=== PATIENT | male | born 1975 | race Caucasian/White ===

== ENCOUNTER 2017-01-31 18:53 | Emergency (ER) | payer SELFPAY ==
[2017-01-31 19:00] VITALS: BP 141/94; PULSE 80; TEMP 97.9; BMI 24.3
--- NOTE | 2017-01-31 20:05 | PDOC ---
History of Present Illness - General Chief Complaint: Shortness of Breath Stated Complaint: TROUBLE BREATHING/was choking with tongue Time Seen by Provider: 01/31/17 19:33 - History of Present Illness Initial Comments: 01/31/17 19:59 41 yo M with h/o thyroid disorder, and anxiety who present sensation of tongue heaviness and SOB. States that he was recently binge drinking 1 Liter Tequilla/ day from ( 01/27)-(01/30) and 24 hours ago developed a sensation that he was going to swallow his tongue. He states that he had to push tongue down with spoon and pull tongue forward with hand to prevent tongue from being swallowed. Symtpoms worse with supine positoning. Also endorses globus sensation with swallowing, but denies dysphagia, or odynophagia. Positive intermittent lightheadedness. Denies N/V, fevers/chills, tongue/facial/ lip swelling, numbness, or redness. He denies cough, wheezing, chest pain, hemoptysis, weakness, or abdominal/GI complaints. Denies illicit drug use. Reports similar incident 1 year ago with spontaneous resolution of symtpoms. Past History - Past Medical History Allergies/Adverse Reactions: Allergies Allergy/AdvReac Type Severity Reaction Status Date / Time No Known Allergies Allergy Verified 01/31/17 18:59 Home Medications: Ambulatory Orders NK [No Known Home Medication] 03/17/14 Other medical history: alcohol use - Psycho/Social/Smoking Cessation Hx Anxiety: No Suicidal Ideation: No Smoking History: Never smoked Have you smoked in the past 12 months: No Information on smoking cessation initiated: No Hx Alcohol Use: Yes (2 pints of tequila) Drug/Substance Use Hx: No Substance Use Type: Alcohol Hx Substance Use Treatment: No Review of Systems - Review of Systems Comments:: 01/31/17 20:05 GENERAL/CONSTITUTIONAL: No fever or chills. No weakness. HEAD, EYES, EARS, NOSE AND THROAT: + Globus sensation. No change in vision. No ear pain or discharge. No sore throat.- CARDIOVASCULAR: No chest pain or shortness of breath RESPIRATORY: No cough, wheezing, or hemoptysis. GASTROINTESTINAL: No nausea, vomiting, diarrhea or constipation. GENITOURINARY: No dysuria, frequency, or change in urination. MUSCULOSKELETAL: No joint or muscle swelling or pain. No neck or back pain. SKIN: No rash NEUROLOGIC: No headache, vertigo, loss of consciousness, or change in strength/ sensation. ENDOCRINE: No increased thirst. No abnormal weight change HEMATOLOGIC/LYMPHATIC: No anemia, easy bleeding, or history of blood clots. ALLERGIC/IMMUNOLOGIC: No hives or skin allergy. *Physical Exam - Vital Signs Last Vital Signs Temp Pulse Resp BP Pulse Ox 97.9 F 80 18 141/94 99 01/31/17 18:56 01/31/17 18:56 01/31/17 18:56 01/31/17 18:56 01/31/17 18:56 - Physical Exam Comments: 01/31/17 20:06 ENERAL: Awake, alert, and fully oriented, in no acute distress HEAD: No signs of trauma, normocephalic, atraumatic EYES: PERRLA, EOMI, sclera anicteric, conjunctiva clear ENT: + tonsilar hypertrophy. Auricles normal inspection, hearing grossly normal , nares patent, oropharynx clear without exudates. Moist mucosa NECK: Normal ROM, supple, no lymphadenopathy, JVD, or masses LUNGS: No distress, speaks full sentences, clear to auscultation bilaterally HEART: Regular rate and rhythm, normal S1 and S2, no murmurs, rubs or gallops, peripheral pulses normal and equal bilaterally. ABDOMEN: Soft, nontender, normoactive bowel sounds. No guarding, no rebound. No masses EXTREMITIES: Normal inspection, Normal range of motion, no edema. No clubbing or cyanosis. SKIN: Warm, Dry, normal turgor, no rashes or lesions noted. Medical Decision Making - Medical Decision Making 01/31/17 20:27 41 yo M with h/o thyroid disorder, and anxiety who present sensation of tongue heaviness and globus sensation following recent binge drinking event. Symtpoms worse with supine positoning. Denies dysphagia, or odynophagia. Denies N/V, fevers/chills, tongue/facial/ lip swelling, numbness, or redness., cough, wheezing, chest pain, hemoptysis, weakness, or abdominal/GI complaints. Denies illicit drug use. Reports similar incident 1 year ago with spontaneous resolution of symtpoms. Physical exam reveals hemodynamic stability and BL tonsilar hypertrophy. DDx: anxiety, panick attack, hyperthyroidism Pt. stable for discharge *DC/Admit/Observation/Transfer Diagnosis at time of Disposition: Anxiety about health - Discharge Dispostion Disposition: HOME Admit: No - Patient Instructions Printed Discharge Instructions: Conversion Disorder Additional Instructions: If you experience difficulty swallowing, increased shortness of breath, lightheadedness or worsening symptoms please return to the ED. Please follow up with PCP for symptom management.
--- NOTE | 2017-01-31 20:18 | PDOC ---
Attending Attestation - Resident Resident Name: Dyllan Yanes - ED Attending Attestation I have performed the following: I have examined & evaluated the patient, The case was reviewed & discussed with the resident, I agree w/resident's findings & plan, Exceptions are as noted - HPI HPI: 02/05/17 19:27 Pt c/o cp - Physicial Exam PE: 01/31/17 20:17 *Physical Exam General Appearance: Yes: Appropriately Dressed. No: Apparent Distress, Intoxicated HEENT: positive: EOMI, RADHA, Normal ENT Inspection, Normal Voice, TMs Normal, Pharynx Normal. negative: Pale Conjunctivae, Photophobia, Scleral Icterus (R), Scleral Icterus (L) Neck: positive: Trachea midline, Normal Thyroid, Supple. negative: Tender, Rigid, Carotid bruit, Stridor, Lymphadenopathy (R), Lymphadenopathy (L), Thyromegaly Respiratory/Chest: positive: Lungs Clear, Normal Breath Sounds. negative: Chest Tender, Respiratory Distress, Accessory Muscle Use, Labored Respiration, RES, Crackles, Rales, Rhonchi, Stridor, Wheezing, Dullness Cardiovascular: positive: Regular Rhythm, Regular Rate, S1, S2. negative: Edema , JVD, Murmur, Bradycardia, Tachycardia Vascular Pulses: Dorsalis-Pedis (R): 2+, Doralis-Pedis (L): 2+ Gastrointestinal/Abdominal: positive: Normal Bowel Sounds, Flat, Soft. negative : Tender, Organomegaly, Pulsatile Mass, Increased Bowel Sounds, Decreased BS, Distended, Guarding, Rebound, Hernia, Hepatomegaly, Spleenomegaly Lymphatic: negative: Adenopathy, Tenderness Musculoskeletal: positive: Normal Inspection. negative: CVA Tenderness, Decreased Range of Motion Extremity: positive: Normal Capillary Refill, Normal Inspection, Normal Range of Motion, Pelvis Stable. negative: Tender, Pedal Edema, Swelling, Erythema Integumentary: positive: Normal Color, Dry, Warm. 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 negative: EOM Palsy, Facial Droop, Sensory Deficit - Medical Decision Making 02/05/17 19:26 Pt evaluated and discharged.
== END 2017-01-31 20:38 | disposition home or self-care (01) ==
LOC: JER 18:53
DX: F40.233 Fear of injury (principal); E07.9 Disorder of thyroid, unspecified; F41.9 Anxiety disorder, unspecified
CPT/HCPCS: 99282-25

== ENCOUNTER 2018-09-27 21:48 | Emergency (ER) | payer SELFPAY ==
[2018-09-27 21:57] VITALS: BP 115/63; PULSE 71; TEMP 97.9; BMI 25.8
[2018-09-27] MEDS ORDERED: DOXYCYCLINE HYCLATE 100 MG CAPSULE PO ONE ×2 (22:28→22:31)
--- NOTE | 2018-09-27 22:28 | PDOC ---
History of Present Illness - General Stated Complaint: AFRAID OF DYING/TICK BITE Time Seen by Provider: 09/27/18 22:07 History Source: Patient Exam Limitations: No Limitations - History of Present Illness Travel History: No Initial Comments: 09/27/18 22:30 Patient with extensive history starting in May where he had unprotected sex with a new partner. Was notified in June that partner had chlamydia and herpes. States July he received treatment for chlamydia but states the pain to his penis and his lower abdomen/suprapubic area never seemed to resolve. Was seen by another provider the end of August, who told him that his STD had resolved did not identify any cause for his penis and scrotal pain and referred him to a urologist which she has an appointment October 06. Patient denies fever, denies any drainage from his penis, no lesions or ulcerations, no swelling. However states has pain and burning with his void which sometimes extends up through his penis shaft and into his suprapubic area. Incidentally today noted a small deer tic lodged onto his scrotum, to extract, and brought with for evaluation. Timing/Duration: reports: constant Quality: reports: aching, burning, stabbing Abdominal Pain Onset Location: reports: suprapubic Past History - Past Medical History Allergies/Adverse Reactions: Allergies Allergy/AdvReac Type Severity Reaction Status Date / Time No Known Allergies Allergy Verified 09/27/18 21:58 Home Medications: Ambulatory Orders Doxycycline Hyclate [Vibratab -] 100 mg PO BID #14 tablet 09/27/18 COPD: No - Suicide/Smoking/Psychosocial Hx Smoking History: Never smoked Have you smoked in the past 12 months: No Information on smoking cessation initiated: No Hx Alcohol Use: No Drug/Substance Use Hx: No Substance Use Type: Alcohol Hx Substance Use Treatment: No *Physical Exam - Vital Signs Last Vital Signs Temp Pulse Resp BP Pulse Ox 97.9 F 71 17 115/63 100 09/27/18 21:54 09/27/18 21:54 09/27/18 21:54 09/27/18 21:54 09/27/18 21:54 - Physical Exam General Appearance: Yes: Nourished, Appropriately Dressed. No: Apparent Distress HEENT: positive: RADHA, Normal ENT Inspection, TMs Normal, Pharynx Normal Neck: positive: Tender, Supple Respiratory/Chest: positive: Lungs Clear, Normal Breath Sounds Gastrointestinal/Abdominal: positive: Normal Bowel Sounds, Soft. negative: Tender Male Genitalia: positive: normal genitalia, other (no evidence of swelling erythema or injury from tick dislodging, no evidence of retained body fragments of tick to left upper scrotum wall.). 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 Patient has appointment with urologist on October 06 for thorough neurologic evaluation and recheck. Understands will call in 2-3 days for reports of Chlamydia and gonorrhea testing and understands treatment will be completed for presumed cases even though may not be positive. *DC/Admit/Observation/Transfer Diagnosis at time of Disposition: STD exposure Tick bite of groin Qualifiers: Encounter type: initial encounter Qualified Code(s): S30.861A - Insect bite ( nonvenomous) of abdominal wall, initial encounter; W57.XXXA - Bitten or stung by nonvenomous insect and other nonvenomous arthropods, initial encounter - Discharge Dispostion Disposition: HOME Condition at time of disposition: Stable Decision to Admit order: No - Referrals - Patient Instructions Printed Discharge Instructions: Facts About Sexually Transmitted Infections, Lyme Disease Test Additional Instructions: You been treated today with doxycycline 200 mg tablet for coverage of DEer Tick bite - for prophylaxis coverage for Lyme's disease with additional 100 mg twice a day for the remainder of the week to cover by mouth presumed chlamydia You have been treated with Rocephin 250 mg injection for treatment of presumned gonorrhea gonorrhea and chlamydia testing will not be completed for the next few days. You may call [phone] and leave message for return phone call with lab results. Be sure to be clear with your name, birthdate, and phone number Always use condoms with the partners Followup with COMMERCIAL MAINTENANCE TECHNICIAN or PMD in one week for reevaluation and retesting. - Post Discharge Activity Forms/Work/School Notes: Back to Work
[2018-09-27 22:45] LABS: PH,URINE 6.5 (5.0-8.0); URINE APPEARANCE CLEAR; URINE BILIRUBIN NEGATIVE (NEGATIVE); URINE COLOR YELLOW; URINE GLUCOSE (UA) NEGATIVE (NEGATIVE); URINE KETONE NEGATIVE (NEGATIVE); URINE LEUK ESTERASE NEGATIVE (NEGATIVE); URINE NITRITE NEGATIVE (NEGATIVE); URINE PROTEIN NEGATIVE (NEGATIVE)
== END 2018-09-27 23:01 | disposition home or self-care (01) ==
LOC: JERFT 21:48
DX: A56.8 Sexually transmitted chlamydial infection of other sites (principal); S30.863A Insect bite (nonvenomous) of scrotum and testes, initial encounter; W57.XXXA Bitten or stung by nonvenomous insect and other nonvenomous arthropods, initial encounter; Y93.89 Activity, other specified; Y92.89 Other specified places as the place of occurrence of the external cause; Y99.8 Other external cause status
CPT/HCPCS: 36415; 81003; 87491; 87591; 99281-25

== ENCOUNTER 2018-11-14 15:29 | Emergency (ER) | payer SELFPAY | END 2018-11-14 17:31 | disposition home or self-care (01) | LOC: JER 15:29 ==

== ENCOUNTER 2019-01-20 12:08 | Emergency (ER) | payer SELFPAY ==
[2019-01-20 12:42] VITALS: BP 112/76; PULSE 97; TEMP 98.5; BMI 27.3
[2019-01-20] MEDS ORDERED: KETOROLAC TROMETHAMINE 15 MG/ML VIAL ONE (13:02)
[2019-01-20] MEDS ORDERED: LIDOCAINE 5% TOPICAL PATCH TP ONE (13:02)
[2019-01-20] MEDS ORDERED: LIDOCAINE 5% TOPICAL PATCH ONE (13:03)
[2019-01-20] MEDS ORDERED: KETOROLAC TROMETHAMINE 15 MG/ML VIAL IM ONE (13:03)
--- NOTE | 2019-01-20 13:07 | PDOC ---
History of Present Illness - General Chief Complaint: Back Pain Stated Complaint: RT. SIDE BACK BURNING Time Seen by Provider: 01/20/19 12:50 History Source: Patient Exam Limitations: No Limitations Past History - Travel Traveled outside of the country in the last 30 days: No Close contact w/someone who was outside of country & ill: No - Past Medical History Allergies/Adverse Reactions: Allergies Allergy/AdvReac Type Severity Reaction Status Date / Time No Known Allergies Allergy Verified 09/27/18 21:58 Home Medications: Ambulatory Orders Doxycycline Hyclate [Vibratab -] 100 mg PO BID #14 tablet 09/27/18 Cyclobenzaprine HCl [Flexeril -] 10 mg PO HS #10 tablet 01/20/19 Ibuprofen 600 mg PO Q6H #30 tablet 01/20/19 Anemia: No Asthma: No Cancer: No Cardiac Disorders: No CVA: No COPD: No - Surgical History Cardiac Surgery: No Cholecystectomy: No Gastric Stapling: No GI Surgery: No Lung Surgery: No - Suicide/Smoking/Psychosocial Hx Smoking History: Never smoked Have you smoked in the past 12 months: No If you are a former smoker, when did you quit?: 2008 Hx Alcohol Use: No Drug/Substance Use Hx: No Substance Use Type: Alcohol Hx Substance Use Treatment: No Review of Systems - Review of Systems Able to Perform ROS?: Yes Comments:: 01/20/19 15:58 CONSTITUTIONAL: Absent: fever, chills, diaphoresis, generalized weakness, malaise, loss of appetite GASTROINTESTINAL: Absent: abdominal pain, abdominal distension, nausea, vomiting, diarrhea, constipation, melena, hematochezia GENITOURINARY: Absent: dysuria, frequency, urgency, hesitancy, hematuria, flank pain, genital pain MUSCULOSKELETAL: Present: upper R back pain Absent: arthralgia, joint swelling SKIN: Absent: rash, itching, pallor NEUROLOGIC: Absent: headache, focal weakness or paresthesias, dizziness, unsteady gait, seizure, mental status changes, bladder or bowel incontinence PSYCHIATRIC: Absent: anxiety, depression, suicidal or homicidal ideation, hallucinations. Is the patient limited Azeri proficient: No *Physical Exam - Vital Signs Last Vital Signs Temp Pulse Resp BP Pulse Ox 98.5 F 97 H 20 112/76 95 01/20/19 12:38 01/20/19 12:38 01/20/19 12:38 01/20/19 12:38 01/20/19 12:38 - Physical Exam Comments: 01/23/19 09:58 GENERAL: Well developed, well nourished. Awake and alert. No acute distress. NECK: Supple. Full ROM. No JVD. Carotid pulses 2+ and symmetric, without bruits. No thyromegaly. No lymphadenopathy. MUSCULOSKELETAL TTP of the R mid rhomboid muscle. Normal range of motion at all joints. No bony deformities or tenderness. No CVA tenderness. EXTREMITIES: No cyanosis. No clubbing. No edema. No calf tenderness. SKIN: Warm and dry. Normal capillary refill. No rashes. No jaundice. NEUROLOGICAL: Alert, awake, appropriate. Cranial nerves 2-12 intact. No deficits to light touch and temperature in face, upper extremities and lower extremities. No motor deficits in the in face, upper extremities and lower extremities. Normoreflexic in the upper and lower extremities. Normal speech. Toes are down- going bilaterally. Gait is normal without ataxia. PSYCHIATRIC: Cooperative. Good eye contact. Appropriate mood and affect. Medical Decision Making - Medical Decision Making 01/20/19 15:59 The patient is a 43-year-old male with past medical history of alcoholism,who presents to the ER today for upper back pain. He states that the pain is been going on for about 2 months however it got worse today. 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 He states it hurts more when he takes deep breath or moves in a certain direction.Denies numbness and tingling, weakness to the upper extremities, fevers and trauma. A/P: Muscle spasm On exam with point tenderness to palpation of the right rhomboid along the midline scapula; palpable spasm felt Pt is neurologically intact with no focal findings Will treat with Toradol and lidocaine patch at this time Pt has full ROM of the upper extremities DC home with supportive therapy and PCP follow up I discussed the physical exam findings, ancillary test results and final diagnoses with the patient. I answered all of the patient's questions. The patient was satisfied with the care received and felt comfortable with the discharge plan and treatment plan. The Patient agrees to follow up with the primary care physician/specialist within 24-72 hours. Return precautions were given. *DC/Admit/Observation/Transfer Diagnosis at time of Disposition: Upper back pain - Discharge Dispostion Disposition: HOME Condition at time of disposition: Stable Decision to Admit order: No - Prescriptions Prescriptions: Cyclobenzaprine HCl [Flexeril -] 10 mg PO HS #10 tablet Ibuprofen 600 mg PO Q6H #30 tablet - Referrals Referrals: Ralph Green MD [Staff Physician] - - Patient Instructions Printed Discharge Instructions: DI for Back Spasm Additional Instructions: You were evaluated for your upper back pain today. It is most likely due to a muscle spasm Please take the Motrin as directed Take the Flexiril every 8 hours the first day. Then take the medication at night only. Do not drink alcohol or drive after taking this medication as it may make you drowsy. You may apply warm compresses to the area. Please follow up with orthopedics if your symptoms do not improve this week; a referral has been provided to you Return to the ER for worsening pain despite treatment, numbness/weakness down the extremities, changes in the way you walk, numbness/tingling to the groin, if you have bladder/bowel incontinence, or if you have any changes in your symptoms. - Post Discharge Activity Forms/Work/School Notes: Back to Work
[2019-01-20] MEDS ORDERED: LIDOCAINE PATCH REMOVAL MC SCH (22:00)
== END 2019-01-20 13:17 | disposition home or self-care (01) ==
LOC: JERFT 12:08
PROC: 3E0233Z Introduction of Anti-inflammatory into Muscle, Percutaneous Approach (ICD-10-PCS; principal; 2019-01-20)
DX: M54.9 Dorsalgia, unspecified (principal); Z87.891 Personal history of nicotine dependence
CPT/HCPCS: 99281-25

== ENCOUNTER 2020-09-03 04:49 | Emergency (ER) | payer OTHER ==
[2020-09-03 05:15] VITALS: BMI 29.0
[2020-09-03] MEDS ORDERED: chlordiazePOXIDE HCL 25 MG CAPSULE PO ONE (06:04)
[2020-09-03] MEDS ORDERED: chlordiazePOXIDE HCL 25 MG CAPSULE ONE (06:26)
[2020-09-03 06:44] LABS: BASO % 1.2 % (0-2.0); EOS % 3.3 % (0-4.5); HEMATOCRIT 40.7 % (35.4-49); HEMOGLOBIN 14.2 GM/dL (11.7-16.9); LYMPH % 25.7 % (8-40); MCH 32.5 pg (25.7-33.7); MCHC 34.8 g/dl (32.0-35.9); MEAN CELL VOLUME 93.4 fl (80-96); MEAN PLT VOLUME 8.7 fl (7.5-11.1); NEUT % 61.8 % (42.8-82.8); PLATELET COUNT 171 K/MM3 (134-434); RBC 4.35 M/mm3 (4.00-5.60); RDW 12.9 % (11.9-15.9); WHITE BLOOD COUNT 8.6 K/mm3 (4.0-10.0)
[2020-09-03 07:00] LABS: POTASSIUM 4.4 mmol/L (3.5-5.1)
[2020-09-03 07:02] LABS: CALCIUM 8.9 mg/dL (8.5-10.1)
[2020-09-03 07:03] LABS: ALBUMIN 4.1 g/dl (3.4-5.0)
[2020-09-03 07:06] LABS: CREATININE 0.9 mg/dL (0.55-1.3)
[2020-09-03 07:07] LABS: BILIRUBIN,TOTAL 1.1 mg/dL (0.2-1); TOT PROT 7.7 g/dl (6.4-8.2)
[2020-09-03 08:58] LABS: EPI CELLS 10 /uL (0-25.1); HYALINE CASTS 0 /uL (0-3.1); URINE APPEARANCE CLEAR; URINE BACTERIA 55 /uL (0-1359); URINE BILIRUBIN NEGATIVE (NEGATIVE); URINE COLOR RED; URINE GLUCOSE (UA) NEGATIVE (NEGATIVE); URINE KETONE NEGATIVE (NEGATIVE); URINE LEUK ESTERASE TRACE (NEGATIVE); URINE NITRITE NEGATIVE (NEGATIVE); URINE PROTEIN NEGATIVE (NEGATIVE); URINE RBC 3 /uL (0-23.9); URINE WBC 2 /uL (0-25.8)
[2020-09-03 09:14] VITALS: BP 130/93; PULSE 76; TEMP 98.4
== END 2020-09-03 09:18 | disposition home or self-care (01) ==
LOC: JER 04:49
DX: F41.9 Anxiety disorder, unspecified (principal); L29.9 Pruritus, unspecified; K76.0 Fatty (change of) liver, not elsewhere classified
CPT/HCPCS: 36415; 76705-TC; 80053; 80307; 81003; 85025; 87086; 87491; 87591; 99285-25

== ENCOUNTER 2020-11-04 22:34 | Emergency (ER) | payer OTHER ==
[2020-11-04 22:41] VITALS: BP 119/87; PULSE 119; TEMP 97; BMI 24.2
[2020-11-04] MEDS ORDERED: PANTOPRAZOLE SODIUM 40 MG VIAL IVPUSH ONE (23:22)
[2020-11-04] MEDS ORDERED: SODIUM CHLORIDE 0.9% 500 ML INFUS.BAG IV ONE (23:22)
[2020-11-04] MEDS ORDERED: PANTOPRAZOLE SODIUM 40 MG VIAL ONE (23:33)
[2020-11-04 23:37] LABS: BASO % 1.3 % (0-2.0); EOS % 1.1 % (0-4.5); HEMATOCRIT 46.3 % (35.4-49); LYMPH % 35.4 % (8-40); MCH 31.7 pg (25.7-33.7); MCHC 34.6 g/dl (32.0-35.9); MEAN CELL VOLUME 91.6 fl (80-96); MEAN PLT VOLUME 8.5 fl (7.5-11.1); MONO % 6.5 % (3.8-10.2); NEUT % 55.7 % (42.8-82.8); PLATELET COUNT 308 K/MM3 (134-434); RBC 5.06 M/mm3 (4.00-5.60); RDW 12.4 % (11.9-15.9); WHITE BLOOD COUNT 7.4 K/mm3 (4.0-10.0)
[2020-11-04] MEDS ORDERED: ONDANSETRON 4 MG/2 ML VIAL IVPUSH ONE (23:42)
[2020-11-04 23:44] LABS: INR 0.99 (0.83-1.09)
[2020-11-04 23:46] LABS: ACTIVATED PTT 26.4 SECONDS (25.2-36.5)
[2020-11-04] MEDS ORDERED: ONDANSETRON 4 MG/2 ML VIAL ONE (23:49)
[2020-11-05 00:41] LABS: BLOOD UREA NITROGEN 7.4 mg/dL (7-18); CALCIUM 9.2 mg/dL (8.5-10.1)
[2020-11-05 00:43] LABS: ALBUMIN 4.3 g/dl (3.4-5.0)
[2020-11-05 00:46] LABS: BILIRUBIN,TOTAL 0.7 mg/dL (0.2-1); TOT PROT 8.4 g/dl (6.4-8.2)
== END 2020-11-05 00:46 | disposition home or self-care (01) ==
LOC: JER 22:34
PROC: 3E033GC Introduction of Other Therapeutic Substance into Peripheral Vein, Percutaneous Approach (ICD-10-PCS; principal; 2020-11-04)
PROC: 3E033GC Introduction of Other Therapeutic Substance into Peripheral Vein, Percutaneous Approach (ICD-10-PCS; 2020-11-04)
DX: K92.0 Hematemesis (principal)
CPT/HCPCS: 36415; 80053; 82272; 85025; 85610; 85730; 99284-25

== ENCOUNTER 2021-02-23 12:53 | Emergency (ER) | payer OTHER ==
[2021-02-23 13:15] VITALS: BP 105/63; PULSE 66; TEMP 98.4; BMI 26.2
[2021-02-23] MEDS ORDERED: SODIUM CHLORIDE 1,000 ML IV SCH (13:30)
[2021-02-23 13:58] LABS: BASO % 1.2 % (0-2.0); EOS % 5.1 % (0-4.5); HEMATOCRIT 40.1 % (35.4-49); HEMOGLOBIN 13.8 GM/dL (11.7-16.9); MCH 32.1 pg (25.7-33.7); MCHC 34.4 g/dl (32.0-35.9); MEAN CELL VOLUME 93.3 fl (80-96); MEAN PLT VOLUME 8.3 fl (7.5-11.1); MONO % 7.5 % (3.8-10.2); NEUT % 61.2 % (42.8-82.8); PLATELET COUNT 231 10^3/uL (134-434); RDW 12.6 % (11.9-15.9); WHITE BLOOD COUNT 7.4 K/mm3 (4.0-10.0)
[2021-02-23 14:05] LABS: INR 0.93 (0.83-1.09); PROTHROMBIN TIME (PATIENT) 11.4 SEC (9.7-13.0)
[2021-02-23 14:07] LABS: ACTIVATED PTT 30.8 SECONDS (25.2-36.5)
[2021-02-23 14:21] LABS: CHLORIDE 106 mmol/L (98-107); SODIUM 133 mmol/L (136-145)
[2021-02-23 14:24] LABS: ALBUMIN 3.8 g/dl (3.4-5.0); BLOOD UREA NITROGEN 17.7 mg/dL (7-18); CALCIUM 8.9 mg/dL (8.5-10.1); CO2 27 mmol/L (21-32); GLUCOSE,RANDOM 90 mg/dL (74-106)
[2021-02-23 14:28] LABS: CHOLESTEROL 205 mg/dL (50-200); SGOT/AST 101 U/L (15-37); TRIGLYCERIDES 207 mg/dL (0-150)
[2021-02-23 14:29] LABS: BILIRUBIN,TOTAL 0.4 mg/dL (0.2-1); HDL CHOLESTEROL 51 mg/dL (40-60); LDL CHOLESTEROL (ONLY SJRH) 139 mg/dL (5-100)
[2021-02-23 14:30] LABS: ALK PHOS 70 U/L (45-117)
[2021-02-23 15:20] LABS: ANION GAP 0 MMOL/L (8-16); SGPT/ALT 54 U/L (13-61)
== END 2021-02-23 16:48 | disposition home or self-care (01) ==
LOC: JER 12:53 → MERGE 12:53 → JER 16:48
DX: G51.0 Bell's palsy (principal)
CPT/HCPCS: 36415; 70450-TC; 80053; 80061; 82550; 82553; 83036; 84484; 85025; 85610; 85730; 86618; 86850; 86900; 86901; 93005; 93010; 99284-25

== ENCOUNTER 2022-06-01 22:59 | Emergency (ER) | payer OTHER ==
[2022-06-01 23:18] VITALS: BP 117/77; PULSE 75; RESP 18; TEMP 98; BMI 25.4
[2022-06-02] MEDS ORDERED: LORazepam 1 MG TABLET PO ONE (00:20)
[2022-06-02] MEDS ORDERED: LORazepam 1 MG TABLET ONE (00:30)
== END 2022-06-02 07:32 | disposition home or self-care (01) ==
LOC: JER 22:59
DX: G47.00 Insomnia, unspecified (principal); F41.9 Anxiety disorder, unspecified
CPT/HCPCS: 99283-25

== ENCOUNTER 2022-12-18 00:31 | Inpatient (IN) | payer OTHER ==
[2022-12-18 00:39] VITALS: TEMP 97.8; BMI 27.3
[2022-12-18] MEDS ORDERED: LORazepam 2 MG TABLET PO ONE (01:13)
[2022-12-18] MEDS ORDERED: LORazepam 1 MG TABLET ONE (01:31)
[2022-12-18] MEDS ORDERED: LORazepam 2 MG/ML SDV VIAL IVPUSH ONE (02:09)
[2022-12-18 02:43] LABS: EOS % 0.4 % (0-4.5); HEMATOCRIT 41.4 % (35.4-49); HEMOGLOBIN 13.9 GM/dL (11.7-16.9); MCH 31.2 pg (25.7-33.7); MCHC 33.5 g/dl (32.0-35.9); MEAN CELL VOLUME 93.1 fl (80-96); MEAN PLT VOLUME 8.3 fl (7.5-11.1); MONO % 9.4 % (3.8-10.2); NEUT % 74.2 % (42.8-82.8); PLATELET COUNT 182 10^3/uL (134-434); RBC 4.45 M/mm3 (4.00-5.60); RDW 13.1 % (11.9-15.9); WHITE BLOOD COUNT 7.8 K/mm3 (4.0-10.0)
[2022-12-18] MEDS ORDERED: chlordiazePOXIDE HCL 25 MG CAPSULE PO ONE (02:43)
[2022-12-18] MEDS ORDERED: chlordiazePOXIDE HCL 25 MG CAPSULE ONE (03:00)
[2022-12-18 03:10] LABS: POTASSIUM 3.7 mmol/L (3.5-5.1)
[2022-12-18 03:14] LABS: ALBUMIN 4.5 g/dl (3.4-5.0); BLOOD UREA NITROGEN 7.6 mg/dL (7-18); CALCIUM 9.5 mg/dL (8.5-10.1)
[2022-12-18 03:18] LABS: CREATININE 0.9 mg/dL (0.55-1.3)
[2022-12-18 03:20] LABS: BILIRUBIN,TOTAL 1.2 mg/dL (0.2-1); TOT PROT 8.5 g/dl (6.4-8.2)
[2022-12-18] MEDS ORDERED: LORazepam 1 MG TABLET PO PRN (05:55)
[2022-12-18 06:44] VITALS: BP 139/91; PULSE 81; RESP 16
[2022-12-18] MEDS ORDERED: LORazepam 2 MG TABLET PO SCH (11:00)
[2022-12-20] MEDS ORDERED: LORazepam 1 MG TABLET PO SCH (05:00)
[2022-12-21] MEDS ORDERED: LORazepam 0.5 MG TABLET PO PRN
[2022-12-21] MEDS ORDERED: LORazepam 0.5 MG TABLET PO SCH (05:00)
[2022-12-22] MEDS ORDERED: LORazepam 0.5 MG TABLET PO ONE (05:00)
== END 2022-12-18 11:59 | disposition left against medical advice (07) | DRG 770 ==
LOC: JER 00:31 → JERBED 05:53
PROVIDERS: ADMIT Family Medicine; ATTEND Family Medicine
PROC: HZ2ZZZZ Detoxification Services for Substance Abuse Treatment (ICD-10-PCS; principal; 2022-12-18)
DX: F10.239 Alcohol dependence with withdrawal, unspecified (principal); F41.9 Anxiety disorder, unspecified; R51.9 Headache, unspecified; F51.02 Adjustment insomnia; R25.3 Fasciculation
CPT/HCPCS: 36415; 80053; 80307; 84484; 85025; 93005; 93010

== ENCOUNTER 2023-01-22 10:43 | Emergency (ER) | payer OTHER ==
[2023-01-22 10:52] VITALS: BP 126/80; PULSE 89; RESP 18; TEMP 97.9; BMI 26.1
[2023-01-22] MEDS ORDERED: SODIUM CHLORIDE 0.9% 500 ML INFUS.BAG IV ONE (11:02)
[2023-01-22] MEDS ORDERED: ALPRAZolam 0.25 MG TABLET PO PRN (12:21)
== END 2023-01-22 12:50 | disposition left against medical advice (07) ==
LOC: JER 10:43
DX: R07.89 Other chest pain (principal); R06.02 Shortness of breath; R11.0 Nausea; R42 Dizziness and giddiness; R20.2 Paresthesia of skin; R06.00 Dyspnea, unspecified
CPT/HCPCS: 71046-TC-FY; 93005; 93010; 99284-25

== ENCOUNTER 2023-01-22 17:28 | Emergency (ER) | payer OTHER ==
[2023-01-22 17:35] VITALS: BP 116/63; PULSE 76; RESP 18; TEMP 98; BMI 26.1
[2023-01-22 19:14] LABS: BASO % 0.9 % (0-2.0); EOS % 2.1 % (0-4.5); HEMATOCRIT 39.9 % (35.4-49); HEMOGLOBIN 13.7 GM/dL (11.7-16.9); LYMPH % 22.6 % (8-40); MCH 31.9 pg (25.7-33.7); MCHC 34.3 g/dl (32.0-35.9); MEAN CELL VOLUME 93.1 fl (80-96); MEAN PLT VOLUME 7.8 fl (7.5-11.1); MONO % 7.8 % (3.8-10.2); NEUT % 66.6 % (42.8-82.8); PLATELET COUNT 224 10^3/uL (134-434); RBC 4.29 M/mm3 (4.00-5.60); WHITE BLOOD COUNT 9.2 K/mm3 (4.0-10.0)
[2023-01-22] MEDS ORDERED: ACETAMINOPHEN 1000 MG/100 ML BAG IVPB ONE (19:22)
[2023-01-22] MEDS ORDERED: METOCLOPRAMIDE HCL INJECTION 10 MG/2 ML VIAL IVPUSH ONE (19:22)
[2023-01-22] MEDS ORDERED: SODIUM CHLORIDE 0.9% 500 ML INFUS.BAG IV ONE (19:22)
[2023-01-22 19:23] LABS: INR 1.08 (0.83-1.09); PROTHROMBIN TIME (PATIENT) 12.5 SEC (9.7-13.0)
[2023-01-22 19:32] LABS: CHLORIDE 109 mmol/L (98-107); POTASSIUM 3.9 mmol/L (3.5-5.1); SODIUM 142 mmol/L (136-145)
[2023-01-22 19:34] LABS: CALCIUM 8.3 mg/dL (8.5-10.1); GLUCOSE,RANDOM 99 mg/dL (74-106)
[2023-01-22 19:35] LABS: ALBUMIN 3.7 g/dl (3.4-5.0); ANION GAP 5 MMOL/L (8-16); BLOOD UREA NITROGEN 10.8 mg/dL (7-18); CO2 29 mmol/L (21-32); MAGNESIUM 2.1 mg/dL (1.8-2.4)
[2023-01-22 19:37] LABS: SGPT/ALT 57 U/L (13-61)
[2023-01-22 19:38] LABS: CREATININE 1.2 mg/dL (0.55-1.3); SGOT/AST 44 U/L (15-37)
[2023-01-22 19:39] LABS: BILIRUBIN,TOTAL 0.6 mg/dL (0.2-1); TOT PROT 6.7 g/dl (6.4-8.2)
[2023-01-22 19:41] LABS: ALK PHOS 69 U/L (45-117)
[2023-01-22 20:14] LABS: PHOSPHOROUS 2.9 mg/dL (2.5-4.9)
[2023-01-22] MEDS ORDERED: METOCLOPRAMIDE HCL INJECTION 10 MG/2 ML VIAL ONE (21:38)
[2023-01-22] MEDS ORDERED: ACETAMINOPHEN INJECTION 100 ML IVPB ONE (21:39)
== END 2023-01-22 21:45 | disposition home or self-care (01) ==
LOC: JER 17:28
PROC: 3E033NZ Introduction of Analgesics, Hypnotics, Sedatives into Peripheral Vein, Percutaneous Approach (ICD-10-PCS; principal; 2023-01-22)
PROC: 3E033GC Introduction of Other Therapeutic Substance into Peripheral Vein, Percutaneous Approach (ICD-10-PCS; 2023-01-22)
DX: R51.9 Headache, unspecified (principal); R42 Dizziness and giddiness; R07.9 Chest pain, unspecified; G47.00 Insomnia, unspecified; X50.0XXA Overexertion from strenuous movement or load, initial encounter
CPT/HCPCS: 36415; 70450-TC; 71045-TC-FY; 80053; 80307; 82550; 82553; 82962; 83735; 84100; 84484; 85025; 85610; 99285-25

== ENCOUNTER 2023-07-19 11:23 | Inpatient (IN) | payer OTHER ==
[2023-07-19] MEDS ORDERED: diazePAM CARPU-JECT 10 MG/2 ML DISP.SYRIN ONE (12:36)
[2023-07-19] MEDS ORDERED: FAMOTIDINE 20 MG/50 ML IVPB 20 MG/50 ML MG IVPB ONE (12:36)
[2023-07-19] MEDS ORDERED: ONDANSETRON 4 MG/2 ML VIAL ONE (12:36)
[2023-07-19] MEDS ORDERED: ACETAMINOPHEN INJECTION 100 ML IVPB ONE (12:36)
[2023-07-19] MEDS: LACTATED RINGERS SOLUTION 1000 ML INFUS.BAG IV ONE (12:45)
[2023-07-19] MEDS: ACETAMINOPHEN 1000 MG/100 ML BAG IVPB ONE (12:45)
[2023-07-19] MEDS: diazePAM CARPU-JECT 10 MG/2 ML DISP.SYRIN IVPUSH ONE (12:45)
[2023-07-19] MEDS: ONDANSETRON 4 MG/2 ML VIAL IVPUSH ONE (12:46)
[2023-07-19] MEDS: FAMOTIDINE 20 MG/50 ML IVPB 20 MG/50 ML MG IVPB ONE (12:46)
[2023-07-19 12:55] LABS: EOS % 1.5 % (0-4.5); HEMATOCRIT 38.9 % (35.4-49); HEMOGLOBIN 13.1 GM/dL (11.7-16.9); LYMPH % 14.7 % (8-40); MCH 32.1 pg (25.7-33.7); MCHC 33.8 g/dl (32.0-35.9); MEAN CELL VOLUME 94.9 fl (80-96); MONO % 9.1 % (3.8-10.2); NEUT % 73.7 % (42.8-82.8); PLATELET COUNT 94 10^3/uL (134-434); RBC 4.09 M/mm3 (4.00-5.60); RDW 12.8 % (11.9-15.9)
[2023-07-19 13:12] LABS: POTASSIUM 3.9 mmol/L (3.5-5.1)
[2023-07-19 13:15] LABS: CALCIUM 9.4 mg/dL (8.5-10.1)
[2023-07-19 13:16] LABS: BLOOD UREA NITROGEN 6.3 mg/dL (7-18); MAGNESIUM 2.1 mg/dL (1.8-2.4)
[2023-07-19 13:19] LABS: CREATININE 0.7 mg/dL (0.55-1.3)
[2023-07-19 13:21] LABS: TOT PROT 7.9 g/dl (6.4-8.2)
[2023-07-19 13:22] LABS: BILIRUBIN,TOTAL 1.1 mg/dL (0.2-1)
[2023-07-19 18:18] VITALS: BMI 27.0
[2023-07-19] MEDS ORDERED: THIAMINE HCL 200 MG/2 ML VIAL IM ONE (19:31)
[2023-07-19] MEDS ORDERED: chlordiazePOXIDE HCL 10 MG CAPSULE PO PRN (19:33)
[2023-07-19] MEDS ORDERED: ONDANSETRON 4 MG/2 ML VIAL IVPUSH PRN (19:37)
[2023-07-19] MEDS: DEXTROSE 5%-0.45% SALINE 1,000 ML IV SCH (20:15)
[2023-07-19] MEDS: chlordiazePOXIDE HCL 25 MG CAPSULE PO SCH (21:54)
[2023-07-19] MEDS: THIAMINE HCL 200 MG/2 ML VIAL IVPB ONE (21:58)
[2023-07-20 09:24] LABS: BASO % 1.1 % (0-2.0); EOS % 4.7 % (0-4.5); HEMATOCRIT 36.7 % (35.4-49); HEMOGLOBIN 12.7 GM/dL (11.7-16.9); LYMPH % 25.7 % (8-40); MCH 32.9 pg (25.7-33.7); MCHC 34.7 g/dl (32.0-35.9); MEAN CELL VOLUME 94.8 fl (80-96); MEAN PLT VOLUME 7.7 fl (7.5-11.1); MONO % 7.9 % (3.8-10.2); NEUT % 60.6 % (42.8-82.8); PLATELET COUNT 95 10^3/uL (134-434); RBC 3.87 M/mm3 (4.00-5.60); RDW 12.7 % (11.9-15.9); WHITE BLOOD COUNT 5.1 K/mm3 (4.0-10.0)
[2023-07-20 09:38] LABS: POTASSIUM 3.3 mmol/L (3.5-5.1)
[2023-07-20 09:45] LABS: ALBUMIN 3.6 g/dl (3.4-5.0); BLOOD UREA NITROGEN 7.8 mg/dL (7-18); CREATININE 0.8 mg/dL (0.55-1.3)
[2023-07-20 09:47] LABS: BILIRUBIN,TOTAL 1.1 mg/dL (0.2-1); CALCIUM 8.8 mg/dL (8.5-10.1); TOT PROT 6.9 g/dl (6.4-8.2)
[2023-07-20] MEDS: PANTOPRAZOLE 40 MG TABLET PO SCH (10:30)
[2023-07-20] MEDS: FOLIC ACID 1 MG TABLET (FP) PO SCH (10:30)
[2023-07-20] MEDS: THIAMINE HCL 100 MG TABLET (FP) PO SCH (10:30)
[2023-07-20 14:34] VITALS: BP 141/78; PULSE 106; RESP 18; TEMP 97.8
== END 2023-07-20 17:36 | disposition left against medical advice (07) | DRG 770 ==
LOC: JER 11:23 → JERBED 16:23 → J6S 18:00 → OBSVTOIN 19:32
PROVIDERS: ADMIT Internal Medicine; ATTEND Internal Medicine
DX: F10.239 Alcohol dependence with withdrawal, unspecified (principal); I10 Essential (primary) hypertension; K70.10 Alcoholic hepatitis without ascites; F41.9 Anxiety disorder, unspecified; R07.9 Chest pain, unspecified; R11.2 Nausea with vomiting, unspecified; R25.1 Tremor, unspecified
CPT/HCPCS: 0241U-QW; 36415; 70450-TC; 71046-TC-FY; 72125-TC; 80053; 82962; 83690; 83735; 84484; 85025; 93005; 93010; 99285-25; G0378; J0131

== ENCOUNTER 2023-10-03 18:59 | Emergency (ER) | payer OTHER ==
[2023-10-03 19:06] VITALS: BP 125/73; PULSE 69; RESP 18; BMI 26.4
[2023-10-03 19:09] VITALS: TEMP 98.3
[2023-10-03 20:05] LABS: BASO % 2.6 % (0-2.0); EOS % 2.8 % (0-4.5); HEMATOCRIT 40.3 % (35.4-49); HEMOGLOBIN 13.8 GM/dL (11.7-16.9); LYMPH % 24.7 % (8-40); MCH 32.5 pg (25.7-33.7); MCHC 34.1 g/dl (32.0-35.9); MEAN CELL VOLUME 95.2 fl (80-96); MEAN PLT VOLUME 8.2 fl (7.5-11.1); MONO % 8.9 % (3.8-10.2); PLATELET COUNT 281 10^3/uL (134-434); RBC 4.24 M/mm3 (4.00-5.60); RDW 12.9 % (11.9-15.9)
[2023-10-03] MEDS ORDERED: hydrOXYzine PAMOATE 50 MG CAPSULE (FP) ONE (20:09)
[2023-10-03] MEDS: hydrOXYzine PAMOATE 25 MG CAPSULE (FP) PO ONE (20:16)
[2023-10-03 20:24] LABS: POTASSIUM 4.1 mmol/L (3.5-5.1)
[2023-10-03 20:27] LABS: ALBUMIN 3.9 g/dl (3.4-5.0); CALCIUM 9.3 mg/dL (8.5-10.1); MAGNESIUM 2.1 mg/dL (1.8-2.4)
[2023-10-03 20:30] LABS: PHOSPHOROUS 2.6 mg/dL (2.5-4.9)
[2023-10-03 20:32] LABS: BILIRUBIN,TOTAL 0.6 mg/dL (0.2-1); TOT PROT 7.3 g/dl (6.4-8.2)
== END 2023-10-03 22:21 | disposition home or self-care (01) ==
LOC: JER 18:59
DX: F41.9 Anxiety disorder, unspecified (principal); R07.89 Other chest pain; R42 Dizziness and giddiness; R68.83 Chills (without fever); R06.02 Shortness of breath; Z20.822 Contact with and (suspected) exposure to COVID-19
CPT/HCPCS: 0241U-QW; 36415; 71046-TC-FY; 80053; 83735; 84100; 84443; 84484; 85025; 93005; 93010; 99285-25

== ENCOUNTER 2023-11-13 03:31 | Emergency (ER) | payer SELFPAY ==
[2023-11-13 03:39] VITALS: RESP 18; BMI 27.3
[2023-11-13] MEDS ORDERED: DIPHTH,PERTUSS(ACELL),TET 0.5 ML DISP.SYRIN IM ONE (04:16)
[2023-11-13] MEDS: TETANUS AND DIPHTHERIA TOXOID 0.5 ML DISP.SYRIN IM ONE (04:33)
[2023-11-13] MEDS: ACETAMINOPHEN 325 MG TABLET (FP) PO ONE (04:33)
[2023-11-13] MEDS: MIDAZOLAM HCL 5 MG/1 ML Single Dose Vial IM ONE ×2 (04:50→04:55)
[2023-11-13 06:59] VITALS: BP 130/67; PULSE 98; TEMP 97.6
== END 2023-11-13 09:55 | disposition home or self-care (01) ==
LOC: JER 03:31
PROC: 0HQ1XZZ Repair Face Skin, External Approach (ICD-10-PCS; principal; 2023-11-13)
PROC: 3E023GC Introduction of Other Therapeutic Substance into Muscle, Percutaneous Approach (ICD-10-PCS; 2023-11-13)
PROC: 3E0234Z Introduction of Serum, Toxoid and Vaccine into Muscle, Percutaneous Approach (ICD-10-PCS; 2023-11-13)
DX: S01.81XA Laceration without foreign body of other part of head, initial encounter (principal); S80.212A Abrasion, left knee, initial encounter; F10.129 Alcohol abuse with intoxication, unspecified; Y04.8XXA Assault by other bodily force, initial encounter; Y90.9 Presence of alcohol in blood, level not specified; Z23 Encounter for immunization
CPT/HCPCS: 70450-TC; 72125-TC; 99284-25

== ENCOUNTER 2023-11-18 10:24 | Inpatient (IN) | payer SELFPAY ==
[2023-11-18] MEDS ORDERED: diazePAM CARPU-JECT 10 MG/2 ML DISP.SYRIN ONE ×4 (10:41→16:57)
[2023-11-18 11:08] VITALS: BMI 25.8
[2023-11-18] MEDS: diazePAM CARPU-JECT 10 MG/2 ML DISP.SYRIN IVPUSH ONE ×4 (11:12→17:05)
[2023-11-18] MEDS: SODIUM CHLORIDE 0.9% 500 ML INFUS.BAG IV ONE (11:12)
[2023-11-18 12:07] LABS: PROTHROMBIN TIME (PATIENT) 11.3 SEC (9.7-13.0)
[2023-11-18 12:10] LABS: ACTIVATED PTT 26.5 SECONDS (25.2-36.5); BASO % 1.2 % (0-2.0); EOS % 2.1 % (0-4.5); HEMATOCRIT 43.2 % (35.4-49); HEMOGLOBIN 14.7 GM/dL (11.7-16.9); LYMPH % 30.5 % (8-40); MCH 31.5 pg (25.7-33.7); MCHC 34.1 g/dl (32.0-35.9); MEAN CELL VOLUME 92.3 fl (80-96); MEAN PLT VOLUME 8.1 fl (7.5-11.1); MONO % 3.7 % (3.8-10.2); NEUT % 62.5 % (42.8-82.8); PLATELET COUNT 263 10^3/uL (134-434); RBC 4.68 M/mm3 (4.00-5.60); RDW 12.2 % (11.9-15.9); WHITE BLOOD COUNT 11.9 K/mm3 (4.0-10.0)
[2023-11-18 12:22] LABS: POTASSIUM 3.6 mmol/L (3.5-5.1)
[2023-11-18 12:25] LABS: ALBUMIN 3.9 g/dl (3.4-5.0); BLOOD UREA NITROGEN 11.8 mg/dL (7-18); CALCIUM 8.4 mg/dL (8.5-10.1)
[2023-11-18 12:28] LABS: CREATININE 0.9 mg/dL (0.55-1.3)
[2023-11-18 12:30] LABS: BILIRUBIN,TOTAL 0.7 mg/dL (0.2-1); TOT PROT 7.7 g/dl (6.4-8.2)
[2023-11-18 15:29] LABS: EPI CELLS 4 /uL (0-25.1); HYALINE CASTS 0 /uL (0-3.1); PH,URINE 6.5 (5.0-8.0); URINE APPEARANCE CLEAR; URINE BACTERIA 10 /uL (0-1359); URINE BILIRUBIN NEGATIVE (NEGATIVE); URINE COLOR YELLOW; URINE GLUCOSE (UA) NEGATIVE (NEGATIVE); URINE KETONE TRACE (NEGATIVE); URINE LEUK ESTERASE TRACE (NEGATIVE); URINE NITRITE NEGATIVE (NEGATIVE); URINE PROTEIN TRACE (NEGATIVE); URINE RBC 21 /uL (0-23.9); URINE WBC 25 /uL (0-25.8)
[2023-11-18 15:32] LABS: PHENCYCLIDINE,URINE NEGATIVE (NEGATIVE); URINE BENZODIAZEPINES NEGATIVE (NEGATIVE)
[2023-11-18 15:35] LABS: COCAINE, UR NEGATIVE (NEGATIVE); METHADONE, UR NEGATIVE (NEGATIVE); OPIATES, URI NEGATIVE (NEGATIVE); URINE AMPHETAMINES NEGATIVE (NEGATIVE); URINE BARBITURATES NEGATIVE (NEGATIVE)
[2023-11-18] MEDS ORDERED: LORazepam 1 MG TABLET PO PRN (16:26)
[2023-11-18] MEDS ORDERED: LORazepam 1 MG TABLET ONE (16:56)
[2023-11-18] MEDS ORDERED: THIAMINE HCL 200 MG/2 ML VIAL ONE (17:36)
[2023-11-18] MEDS: FOLIC ACID INJECTION - 1 MG, THIAMINE HCL 100 MG, MULTIVIT INJECTION ADULT 10 ML in SOD... IVPB ONE (18:04)
[2023-11-18] MEDS: THIAMINE HCL 200 MG/2 ML VIAL IVPB ONE (18:05)
[2023-11-18] MEDS: LORazepam 1 MG TABLET PO SCH (18:05)
[2023-11-19 07:18] LABS: BASO % 0.6 % (0-2.0); EOS % 2.6 % (0-4.5); HEMATOCRIT 35.2 % (35.4-49); HEMOGLOBIN 12.1 GM/dL (11.7-16.9); MCH 31.5 pg (25.7-33.7); MCHC 34.3 g/dl (32.0-35.9); MEAN CELL VOLUME 91.9 fl (80-96); MEAN PLT VOLUME 7.1 fl (7.5-11.1); NEUT % 76.8 % (42.8-82.8); PLATELET COUNT 160 10^3/uL (134-434); RBC 3.83 M/mm3 (4.00-5.60); RDW 12.4 % (11.9-15.9); WHITE BLOOD COUNT 9.5 K/mm3 (4.0-10.0)
[2023-11-19 07:41] LABS: POTASSIUM 3.3 mmol/L (3.5-5.1)
[2023-11-19 07:44] LABS: ALBUMIN 3.3 g/dl (3.4-5.0); MAGNESIUM 1.8 mg/dL (1.8-2.4)
[2023-11-19 07:48] LABS: CREATININE 0.8 mg/dL (0.55-1.3); PHOSPHOROUS 2.6 mg/dL (2.5-4.9)
[2023-11-19 07:49] LABS: BILIRUBIN,TOTAL 1.6 mg/dL (0.2-1); TOT PROT 6.4 g/dl (6.4-8.2)
[2023-11-19] MEDS: POTASSIUM CHLORIDE ORAL LIQUID 20 MEQ/15 ML PO ONE (08:58)
[2023-11-19] MEDS: THIAMINE 100 MG TABLET PO SCH (09:25)
[2023-11-19] MEDS: FOLIC ACID 1 MG TABLET (FP) PO SCH (09:25)
[2023-11-19] MEDS: ENOXAPARIN NA (PORCINE) 40 MG/0.4 ML DISP.SYRIN SQ SCH (09:26)
[2023-11-19 10:30] LABS: INR 1.04 (0.83-1.09)
[2023-11-19 11:03] LABS: BILIRUBIN,DIRECT 0.4 mg/dL (0.0-0.2)
[2023-11-19] MEDS ORDERED: MAG HYDROX/AL HYDROX/SIMETH 30 ML UNIT-DOSE CUP PO PRN (12:29)
[2023-11-19] MEDS: MAG HYDROX/AL HYDROX/SIMETH -MYLANTA- ORAL SUSPENSION PO ONE (13:35)
[2023-11-19] MEDS: PANTOPRAZOLE 40 MG TABLET PO SCH (13:36)
[2023-11-19 15:46] VITALS: BP 126/84; PULSE 100; RESP 21; TEMP 98.2
[2023-11-20] MEDS ORDERED: LORazepam 1 MG TABLET PO SCH (05:00)
[2023-11-21] MEDS ORDERED: LORazepam 0.5 MG TABLET PO PRN
[2023-11-21] MEDS ORDERED: LORazepam 0.5 MG TABLET PO SCH (05:00)
[2023-11-22] MEDS ORDERED: LORazepam 0.5 MG TABLET PO ONE (05:00)
== END 2023-11-19 15:42 | disposition left against medical advice (07) | DRG 770 ==
LOC: JER 10:24 → JERBED 12:59 → J4W 22:01
PROVIDERS: ADMIT Internal Medicine; ATTEND Internal Medicine
PROC: HZ2ZZZZ Detoxification Services for Substance Abuse Treatment (ICD-10-PCS; principal; 2023-11-18)
DX: F10.239 Alcohol dependence with withdrawal, unspecified (principal); I10 Essential (primary) hypertension; G47.00 Insomnia, unspecified; I16.0 Hypertensive urgency; K82.4 Cholesterolosis of gallbladder; R11.2 Nausea with vomiting, unspecified; R45.1 Restlessness and agitation; R19.7 Diarrhea, unspecified; D72.829 Elevated white blood cell count, unspecified; R10.13 Epigastric pain; R74.01 Elevation of levels of liver transaminase levels
CPT/HCPCS: 0241U-QW; 36415; 76705-TC; 80053; 80307; 81003; 82248; 83690; 83735; 84100; 84484; 85025; 85610; 85730; 86850; 86900; 86901; 87086; 93005; 93010; 97116-GP; 97161-GP; 99285-25

== ENCOUNTER 2023-11-21 08:01 | Emergency (ER) | payer SELFPAY ==
[2023-11-21 08:16] VITALS: BP 115/68; PULSE 122; RESP 20; TEMP 98; BMI 26.6
== END 2023-11-21 09:10 | disposition home or self-care (01) ==
LOC: JER 08:01
DX: Z48.02 Encounter for removal of sutures (principal)
CPT/HCPCS: 99281-25

== ENCOUNTER 2023-11-24 21:31 | Emergency (ER) | payer SELFPAY ==
[2023-11-24 21:37] VITALS: BP 125/79; PULSE 98; RESP 16; TEMP 98; BMI 27.3
[2023-11-24] MEDS ORDERED: FAMOTIDINE 20 MG/50 ML IVPB 20 MG/50 ML MG IVPB ONE (22:25)
[2023-11-24] MEDS ORDERED: ONDANSETRON 4 MG/2 ML VIAL ONE (22:25)
[2023-11-24] MEDS: SODIUM CHLORIDE 1,000 ML IV STA (22:30)
[2023-11-24] MEDS: ONDANSETRON 4 MG/2 ML VIAL IVPUSH ONE (22:30)
[2023-11-24] MEDS: FAMOTIDINE 20 MG/50 ML IVPB 20 MG/50 ML MG IVPB ONE (22:30)
[2023-11-24 22:36] LABS: INR 1.04 (0.83-1.09)
[2023-11-24 22:38] LABS: ACTIVATED PTT 28.3 SECONDS (25.2-36.5)
[2023-11-24 22:48] LABS: POTASSIUM 3.8 mmol/L (3.5-5.1)
[2023-11-24 22:48] LABS: BASO % 1.1 % (0-2.0); EOS % 2.2 % (0-4.5); HEMATOCRIT 38.7 % (35.4-49); LYMPH % 27.9 % (8-40); MCH 31.8 pg (25.7-33.7); MCHC 33.5 g/dl (32.0-35.9); MEAN PLT VOLUME 6.8 fl (7.5-11.1); MONO % 11.2 % (3.8-10.2); NEUT % 57.6 % (42.8-82.8); PLATELET COUNT 212 10^3/uL (134-434); RBC 4.08 M/mm3 (4.00-5.60); RDW 12.6 % (11.9-15.9)
[2023-11-24 22:50] LABS: BLOOD UREA NITROGEN 3.6 mg/dL (7-18); CALCIUM 9.1 mg/dL (8.5-10.1)
[2023-11-24 22:53] LABS: CREATININE 0.8 mg/dL (0.55-1.3)
[2023-11-24 22:55] LABS: BILIRUBIN,TOTAL 0.3 mg/dL (0.2-1); TOT PROT 8.2 g/dl (6.4-8.2)
== END 2023-11-24 23:20 | disposition home or self-care (01) ==
LOC: JER 21:31
PROC: 3E033GC Introduction of Other Therapeutic Substance into Peripheral Vein, Percutaneous Approach (ICD-10-PCS; principal; 2023-11-24)
PROC: 3E033GC Introduction of Other Therapeutic Substance into Peripheral Vein, Percutaneous Approach (ICD-10-PCS; 2023-11-24)
DX: F10.129 Alcohol abuse with intoxication, unspecified (principal); R11.2 Nausea with vomiting, unspecified; R07.89 Other chest pain; R06.02 Shortness of breath; Y90.9 Presence of alcohol in blood, level not specified
CPT/HCPCS: 36415; 71045-TC-FY; 80053; 83690; 84484; 85025; 85610; 85730; 93005; 93010; 99285-25

== ENCOUNTER 2023-12-03 02:20 | Emergency (ER) | payer SELFPAY ==
[2023-12-03 02:35] VITALS: BP 135/95; PULSE 107; RESP 20; TEMP 98.8; BMI 27.3
== END 2023-12-03 04:03 | disposition home or self-care (01) ==
LOC: JER 02:20
DX: R04.0 Epistaxis (principal); F10.929 Alcohol use, unspecified with intoxication, unspecified; Y90.9 Presence of alcohol in blood, level not specified
CPT/HCPCS: 99283-25